=== PATIENT | female | born 1960 | race Caucasian/White ===

== ENCOUNTER → 2016-11-27 | Outpatient (CLI) | payer OTHER ==
[~2016-11-27] MED LIST: ADVIL100 M2 PO; FISHOIL PO; HYDROCODON-ACE1 EAC7 PO; LIPITOR20 MG PO; MULTIVITAMINS PO; TUMS CHEWA500 MG/11 PO; ZOCOR 20 MG TAB20 M1 PO
== END ==
LOC: RAD 01:18
DX: Z12.31 Encounter for screening mammogram for malignant neoplasm of breast (principal)

== ENCOUNTER → 2017-02-10 | Outpatient (CLI) | payer OTHER | LOC: RAD 10:33 | DX: R05 Cough (principal) ==

== ENCOUNTER → 2017-03-26 | Outpatient (CLI) | payer OTHER | LOC: CAT 10:12 | DX: K21.9 Gastro-esophageal reflux disease without esophagitis (principal); N20.0 Calculus of kidney; K86.9 Disease of pancreas, unspecified; I70.0 Atherosclerosis of aorta; R16.0 Hepatomegaly, not elsewhere classified; R05 Cough; R06.00 Dyspnea, unspecified; R11.10 Vomiting, unspecified; R63.5 Abnormal weight gain ==

== ENCOUNTER → 2018-05-06 | Outpatient (CLI) | payer OTHER | LOC: RAD 02:20 | DX: Z12.31 Encounter for screening mammogram for malignant neoplasm of breast (principal) ==

== ENCOUNTER → 2019-08-21 | Outpatient (CLI) | payer BC, OTHER | LOC: RAD 11:05 | DX: R05 Cough (principal) ==